=== PATIENT | female | born 1995 | race Caucasian/White ===

== ENCOUNTER 2018-01-12 04:54 | Emergency (ER) | payer OTHER ==
[~2018-01-12] VITALS: Ht 167.6 cm; Wt 109.3 kg
[2018-01-12] MEDS ORDERED: METHYLPHENIDATE40 MG PO (05:18)
[2018-01-12] MEDS ORDERED: MONTELUKAST SOD10 MG PO (05:18)
[2018-01-12] MEDS ORDERED: VENLAFAXINE H37.5 MG PO (05:18)
[2018-01-12] MEDS ORDERED: TRI-LINYAH1 EACH PO (05:19)
[2018-01-12] MEDS ORDERED: OMEPRAZOLE20 MG PO (05:19)
[2018-01-12] MEDS ORDERED: ZOFRAN ODT4 MG PO (06:45)
[2018-01-12] MEDS ORDERED: PERCOCET 5-3251 EACH PO (06:45)
[2018-01-12] MEDS ORDERED: FLOMAX0.4 MG PO (06:45)
== END 2018-01-12 07:10 | disposition home or self-care (01) ==
LOC: ED 04:54
DX: N13.2 Hydronephrosis with renal and ureteral calculous obstruction (principal); Z88.1 Allergy status to other antibiotic agents; Z88.2 Allergy status to sulfonamides; Z88.0 Allergy status to penicillin; Z79.899 Other long term (current) drug therapy
CPT/HCPCS: 74176; 80053; 81001; 83690; 84703; 85025; 96374; 96375; 96376; 99284; J1170; J1885; J2405

== ENCOUNTER → 2018-02-11 | Emergency (ER) | payer OTHER ==
[~2018-02-11] VITALS: Ht 167.6 cm; Wt 109.3 kg
[~2018-02-11] MED LIST: FLOMAX0.4 MG PO; METHYLPHENIDATE40 MG PO; MONTELUKAST SOD10 MG PO; OMEPRAZOLE20 MG PO; PERCOCET 5-3251 EACH PO; TRI-LINYAH1 EACH PO; VENLAFAXINE H37.5 MG PO; ZOFRAN ODT4 MG PO
== END ==
LOC: ED 21:09 → EDSEX 21:10
DX: N13.2 Hydronephrosis with renal and ureteral calculous obstruction (principal); F90.9 Attention-deficit hyperactivity disorder, unspecified type; Z88.1 Allergy status to other antibiotic agents; Z88.2 Allergy status to sulfonamides; Z88.0 Allergy status to penicillin; Z88.8 Allergy status to other drugs, medicaments and biological substances; Z79.899 Other long term (current) drug therapy
CPT/HCPCS: 74176; 80053; 81001; 84703; 85025; 87088; 96361; 96374; 96375; 99284; J1170; J1885; J2405; J2550; J7030

== ENCOUNTER 2018-07-05 08:20 | Emergency (ER) | payer OTHER ==
[~2018-07-05] VITALS: Ht 167.6 cm; Wt 109.3 kg
== END 2018-07-05 11:05 | disposition home or self-care (01) ==
LOC: ED 08:20
DX: J06.9 Acute upper respiratory infection, unspecified (principal); F90.9 Attention-deficit hyperactivity disorder, unspecified type; Z88.1 Allergy status to other antibiotic agents; Z88.2 Allergy status to sulfonamides; Z88.0 Allergy status to penicillin; Z88.8 Allergy status to other drugs, medicaments and biological substances; Z79.899 Other long term (current) drug therapy
CPT/HCPCS: 71045; 87502; 99283-25